=== PATIENT | female | born 1975 | race Caucasian/White ===

== ENCOUNTER 2025-05-22 12:22 | Emergency (ER) | payer OTHER, SELFPAY ==
--- NOTE | ~2025-05-22 | CT_ITS ---
EXAM: CT abdomen pelvis w con - 05/22/2025 13:55 CDT History: 50 years old Female with abdominal pain TECHNIQUE: Multidetector CT of the abdomen and pelvis with intravenous contrast. Coronal and sagittal reformats were also provided for review. Automatic exposure control was used for this study. CONTRAST: 100 cc of Optiray 350 was used for this study. COMPARISON: None Available. FINDINGS: VISUALIZED CHEST: Visualized lungs are clear. ABDOMEN and PELVIS: LIVER: Within normal limits. GALLBLADDER: No calcified gallstones. BILE DUCTS: Diffuse dilatation of the common bile duct measuring up to 1.2 cm. SPLEEN: Within normal limits. PANCREAS: Within normal limits. ADRENAL GLANDS: Within normal limits. KIDNEYS and URETERS: No hydronephrosis or hydroureter. No nephroureterolithiasis. Cortical scarring in the left upper pole. URINARY BLADDER: Mild diffuse thickening of the urinary bladder wall. Collapsed urinary bladder. STOMACH and BOWEL: Postsurgical changes are seen in the stomach. REPRODUCTIVE ORGANS: Within normal limits. MESENTERY/PERITONEAL CAVITY: No free fluid or pneumoperitoneum. LYMPH NODES: No abdominal or pelvic lymphadenopathy. ABDOMINAL WALL: Within normal limits. VASCULATURE: Within normal limits. MUSCULOSKELETAL: Multilevel degenerative changes of the spine. IMPRESSION: 1. Diffuse wall thickening of the urinary bladder. Correlate with urinalysis to rule out possible acute cystitis. 2. Other chronic findings, as above. Reviewed, dictated and finalized at location A. IMPRESSION: 1. Diffuse wall thickening of the urinary bladder. Correlate with urinalysis t o rule out possible acute cystitis. 2. Other chronic findings, as above.
[2025-05-22 12:57] VITALS: BP 97/63; PULSE 79; RESP 16; TEMP 36.7; O2SAT 100
[2025-05-22 13:34] LABS: Hematocrit 40.6 % (37.0-47.0); Hemoglobin 13.7 g/dL (12.0-15.0); Immature Granulocyte Percent A 0.2 % (0-0.5); Lymphocytes Absolute Auto 0.68 K/mm3 (0.9-3.2); Mean Corpuscular HGB Conc 33.7 g/dl (32-36); Mean Corpuscular Hemoglobin 31.8 pg (26-34); Mean Corpuscular Volume 94.2 fl (80-100); Nucleated Red Blood Cells Absolute Auto 0.000 K/mm3 (0.0-0.012); Nucleated Red Blood Cells Perc 0.0 % (0.0-0.2); Platelet Count Result 317 k/mm3 (150-375); Red Blood Count 4.31 M/mm3 (4.2-5.4); White Blood Count 4.6 K/mm3 (4.5-10.0)
[2025-05-22 13:41] LABS: Alanine Aminotransferase 19 U/L (6-35); Albumin Level 4.2 g/dL (3.5-5.1); Alkaline Phosphatase 48 U/L (38-126); Anion Gap 7 mmol/L (4-12); Aspartate Amino Transferase 28 U/L (14-36); Bilirubin,Total 1.5 mg/dL (0.2-1.3); Blood Urea Nitrogen 12 mg/dL (7-17); Calcium 9.2 mg/dL (8.4-10.2); Carbon Dioxide 25 mmol/L (22-30); Chloride 108 mmol/L (98-107); Estimated CRCL calculation 70 ml/min; Estimated Glomerular Filt Rate > 60; Glucose 96 mg/dL (65-110); Potassium 4.0 mmol/L (3.4-5.0); Sodium 140 mmol/L (137-145); Total Protein 7.1 g/dL (6.3-8.2)
[2025-05-22 13:52] LABS: INR 0.9; Prothrombin Time 12.6 Seconds (11.1-14.7)
[2025-05-22 13:53] LABS: Partial Thromboplastin Time 28.3 Seconds (22.3-36.8)
--- NOTE | 2025-05-22 14:06 | ED_ITS ---
HPI - General Adult General Chief complaint: Nausea/Vomiting/Diarrhea Stated complaint: N/V/D-abdominal cramping x 72 hrs Time Seen by Provider: 05/22/25 13:28 History of Present Illness HPI narrative: Patient 50-year-old female who presents emergency department chief complaint of abdominal pain nausea vomiting. The patient reports that she has history of Crohn's disease and also has had a gastric sleeve the patient reports that she was having constipation managed to start having bowel movements that had loose stools the patient reports had multiple episodes of vomiting with the last 1 having some blood streak on and patient reports she has diffuse discomfort throughout her abdomen patient reports no fever Related Data Allergies Allergy/AdvReac Type Severity Reaction Status Date / Time amoxicillin Allergy Mild Other Verified 05/22/25 14:27 Review of Systems 2 Review of Systems: A 10 system review of systems was completed on the patient and is negative except for what is stated in the HPI. Nursing and ancillary documentation was reviewed. Exam 2 Narrative: GENERAL: Well-appearing, well-nourished, and in no acute distress. HEAD: Normocephalic, atraumatic. EYES: PERRLA and EOMI. ENT: Nares clear, no rhinorrhea or epistaxis. Mucous membranes moist. NECK: Supple. CHEST: Clear to auscultation. No respiratory distress. HEART: Regular rate and rhythm. No murmur heard. Normal peripheral pulses. ABDOMEN: Soft, diffuse mild tenderness, nondistended, normal active bowel sounds. EXTREMITIES: Normal range of motion. No edema. SKIN: Warm, dry, no rash. NEURO: No focal deficits. Alert and oriented x3. PSYCH: Normal mood and affect. Course Vital Signs Vital signs: Vital Signs Temperature 36.7 C 05/22/25 12:57 Pulse Rate 79 05/22/25 12:57 Respiratory Rate 16 05/22/25 12:57 Blood Pressure 97/63 L 05/22/25 12:57 Pulse Oximetry 100 05/22/25 12:57 Temperature 36.7 C 05/22/25 12:57 Pulse Rate 65 05/22/25 14:24 Respiratory Rate 16 05/22/25 14:24 Blood Pressure 120/69 05/22/25 14:24 Pulse Oximetry 100 05/22/25 14:24 Medical Decision Making [facility] Narrative Medical decision making narrative: differential diagnosis includes colitis, diverticulitis, Crohn's flare, UTI, pyelonephritis, gastroenteritis laboratory studies were obtained on patient showed white count 4.6 hemoglobin was 13.7 electrolytes showed no acute abnormality other than a bilirubin of 1.5 urinalysis showed a specific gravity of greater than 1.045 1+ ketones 6-10 white blood cells 1+ bacteria patient received IV fluids and antiemetics and is feeling much better CT scan showed no acute abnormality other than some possible cystitis patient was started on Keflex and will given a prescription for Zofran Vital Signs Vital Signs: Vital Signs Temperature 36.7 C 05/22/25 12:57 Pulse Rate 79 05/22/25 12:57 Respiratory Rate 16 05/22/25 12:57 Blood Pressure 97/63 L 05/22/25 12:57 Pulse Oximetry 100 05/22/25 12:57 Temperature 36.7 C 05/22/25 12:57 Pulse Rate 65 05/22/25 14:24 Respiratory Rate 16 05/22/25 14:24 Blood Pressure 120/69 05/22/25 14:24 Pulse Oximetry 100 05/22/25 14:24 Lab Data 05/22/25 13:24 05/22/25 13:24 Labs: Lab Results 05/22/25 05/22/25 Range/Units 13:24 15:24 WBC 4.6 (4.5-10.0) K/mm3 RBC 4.31 (4.2-5.4) M/mm3 Hgb 13.7 (12.0-15.0) g/dL Hct 40.6 (37.0-47.0) % MCV 94.2 (80-100) fl MCH 31.8 (26-34) pg MCHC 33.7 (32-36) g/dl RDW 12.2 (11.5-14.5) % Plt Count 317 (150-375) k/mm3 MPV 9.5 (7.4-10.4) fl Immature Gran % (Auto) 0.2 (0-0.5) % Neut % (Auto) 74.5 H (45.5-73.1) % Lymph % (Auto) 14.8 L (18.3-44.2) % [place] % (Auto) 8.3 (2.6-8.5) % Eos % (Auto) 1.3 (0-4.4) % Baso % (Auto) 0.9 (0.2-1.2) % Lymph # (Auto) 0.68 L (0.9-3.2) K/mm3 [place] # (Auto) 0.4 (0.1-0.6) K/mm3 Eos # (Auto) 0.1 (0-0.3) K/mm3 Baso # (Auto) 0.0 (0.0-0.1) K/mm3 Abs Immat Gran (auto) 0.01 (0.00-0.031) K/mm3 Absolute Neuts (auto) 3.4 (1.3-6.7) K/mm3 Absolute Nucleated RBC 0.000 (0.0-0.012) K/mm3 Nucleated RBC % 0.0 (0.0-0.2) % PT 12.6 (11.1-14.7) Seconds INR 0.9 APTT 28.3 (22.3-36.8) Seconds Sodium 140 (137-145) mmol/L Potassium 4.0 (3.4-5.0) mmol/L Chloride 108 H (98-107) mmol/L Carbon Dioxide 25 (22-30) mmol/L Anion Gap 7 (4-12) mmol/L BUN 12 (7-17) mg/dL Creatinine 0.90 (0.7-1.0) mg/dL Estim Creat Clear Calc 70 ml/min Estimated GFR > 60 (59 - ) Glucose 96 (65-110) mg/dL Calcium 9.2 (8.4-10.2) mg/dL Total Bilirubin 1.5 H (0.2-1.3) mg/dL AST 28 (14-36) U/L ALT 19 (6-35) U/L Alkaline Phosphatase 48 (38-126) U/L Total Protein 7.1 (6.3-8.2) g/dL Albumin 4.2 (3.5-5.1) g/dL Urine Color Yellow (Yellow) Urine Appearance Cloudy H (Clear) Urine pH 6.0 (5.0-9.0) Ur Specific [place] > 1.045 H (1.001-1.035) Urine Protein Trace (Negative) mg/dL Urine Glucose (UA) Negative (Negative) mg/dL Urine Ketones 1+ H (Negative) mg/dL Ur Blood (Man) Negative (Negative) Urine Nitrate Negative (Negative) Urine Bilirubin Negative (Negative) Urine Urobilinogen 1.0 (<2.0) mg/dL Add Ur Microanalysis Reviewed Leukocyte Esterase Rfl Negative (Negative) RAFAT/UL Urine RBC 0-2 (0-2) /hpf Urine WBC 6-10 H (0-3) /hpf Ur Squamous Epith Cells Occasional (Few) /hpf Urine Bacteria 1+ H /hpf Urine Casts 0-2 Blood Type A Positive Antibody Screen Negative Discharge Plan Discharge Clinical Impression: Abdominal pain, Nausea & vomiting, UTI (urinary tract infection) Patient Disposition: Home Condition: Stable Instructions: Antibiotic Form, Urinary Tract Infection in Women (ED), Acute Nausea and Vomiting (ED), Abdominal Pain (ED) Patient Language: Slovenian Prescriptions: New cephalexin 500 mg capsule 500 mg PO Q12H 7 Days Qty: 14 0RF ondansetron 4 mg tablet,disintegrating 4 mg PO Q8H PRN (Reason: nausea and vomiting) Qty: 10 0RF Follow-up/Referrals: PHYSICIAN NOT ON STAFF,NONSTAFF [Primary Care Provider] Time of Disposition: 16:13
[2025-05-22 14:24] VITALS: BP 120/69; PULSE 65; RESP 16; O2SAT 100
[2025-05-22] MEDS: SODIUM CHLORIDE 0.9% IV 1,000 ML 999 ML IV CONT (14:28)
[2025-05-22] MEDS: MORPHINE SULFATE (*CRX) 4 MG/ML INJ 2 MG IV PUSH (14:28)
[2025-05-22] MEDS: ONDANSETRON INJ 4 MG/2 ML VIAL IV PUSH (14:29)
[2025-05-22 15:38] LABS: Add Urine Microscopic? YES; Appearance Urine Cloudy (Clear); Glucose Urine UA Negative (Negative); Leukocyte Esterase Ur Negative LEU/UL (Negative); Need Manual Microscopic Reviewed; Nitrate Urine Negative (Negative); Non Pathogenic Casts 0-2; Specific Grav Ur > 1.045 (1.001-1.035)
--- NOTE | 2025-05-22 16:05 | PC.NURSE ---
Pt. states I'm ready to go home. aware. Family member at bedside.
--- NOTE | 2025-05-22 16:08 | PC.NURSE ---
Dr. Rahman at bedside updating pt.
[2025-05-22 16:28] VITALS: BP 116/74; PULSE 75; RESP 18; O2SAT 98
== END 2025-05-22 16:30 | disposition home or self-care (01) ==
PROVIDERS: Family Medicine; Emergency Provider Emergency Medicine
DX: N39.0 Urinary tract infection, site not specified (principal); R11.2 Nausea with vomiting, unspecified; R10.9 Unspecified abdominal pain; K50.90 Crohn's disease, unspecified, without complications
CPT/HCPCS: 36415; 74177; 80053; 81001; 85025; 85610; 85730; 86850; 86900; 86901; 87086; 96361; 96374; 96375; 99284; J2270; J2405; J7030; Q9967